=== PATIENT | male | born 1975 | race Caucasian/White ===

== ENCOUNTER 2016-12-15 00:59 | Emergency (ER) | payer OTHER ==
[2016-12-15] MEDS ORDERED: IPRATROPIUM-ALBUTEROL 3 ML NEB INHALATION STA (01:38)
[2016-12-15] MEDS ORDERED: ACETAMINOPHEN TAB 500 MG TAB PO STA (01:39)
--- NOTE | 2016-12-15 01:42 | ED ---
General Adult HPI - General Chief complaint: Psychiatric Symptoms Stated complaint: Petition-Homicidal Time Seen by Provider: 12/15/16 01:05 Source: patient, RN notes reviewed Mode of arrival: ambulatory Limitations: no limitations - History of Present Illness Initial comments: This is a 40-year-old male who presents to the emergency department the past history of schizophrenia which the patient states he doesn't believe he has per patient states she is on Seroquel and Zoloft but he only takes them occasionally. Patient also admits to having one beer this evening and states he is a smoker. Patient states he was kicked of his apartment yesterday so they called the police to let them know that he did not want to be messed with and that if anybody masses with and he'll take care of. Patient states when he said he would kill them he did not mean that literally he meant that he would take him to Court soothe him and the authorities would take care of it. Patient also stated that he couldn't see inside pupils might understand what they're doing. Patient also states he thinks people are putting stuff in his apartment that make him. We have year so that he will eventually leave the apartment he states this is occurred multiple times per patient also states that people are stealing all of his stuff. Patient just wanted to let the police noted that that has not continued. - Related Data Home Medications Medication Instructions Recorded Confirmed ARIPiprazole IM [Abilify Maintena] 400 mg IM QMONTH 10/07/16 12/15/16 Previous Rx's Medication Instructions Recorded ARIPiprazole [Abilify] 20 mg PO DAILY 28 Days 10/07/16 Levothyroxine Sodium [Synthroid] 50 mcg PO DAILY 30 Days 10/07/16 Nicotine 21Mg/24Hr Patch [Habitrol] 1 patch TRANSDERM DAILY 28 Days 10/07/16 QUEtiapine [SEROquel] 400 mg PO HS 28 Days 10/07/16 Sertraline [Zoloft] 100 mg PO BID 28 Days 10/07/16 Trihexyphenidyl [Artane] 5 mg PO BID 56 Days 10/07/16 Allergies Allergy/AdvReac Type Severity Reaction Status Date / Time No Known Allergies Allergy Verified 09/26/16 17:52 Review of Systems ROS Statement: Those systems with pertinent positive or pertinent negative responses have been documented in the HPI. ROS Other: All systems not noted in ROS Statement are negative. Past Medical History Past Medical History: Osteoarthritis (OA) Additional Past Medical History / Comment(s): chronic back pain, migraine, chronic insomnia History of Any Multi-Drug Resistant Organisms: None Reported Past Surgical History: Hernia Repair Additional Past Anesthesia/Blood Transfusion Reaction / Comment(s): Pt. did not provide info. Past Psychological History: Bipolar, Depression, Schizophrenia Smoking Status: Current every day smoker Past Alcohol Use History: Rare Additional Past Alcohol Use History / Comment(s): patient states he is smoking 1 pack of cigarettes per day. He drinks alcohol occasionally. He also states he smokes marijuana and eats brownies. He denies any prescription drug users other street drug use. He is single. Past Drug Use History: Marijuana Additional Drug Use History / Comment(s): "no I don't, my friends do". Pt claims he has been in in-pt tx "I think last year" in [place] - Past Family History Father Additional Family Medical History / Comment(s): patient's father in his late 70s from cancer. Patient does not know specifics. Mother Additional Family Medical History / Comment(s): Mother in her 70s. Brother(s) Additional Family Medical History / Comment(s): Patient has 3 brothers and 5 sisters with strong family history of depression. Daughter(s) Additional Family Medical History / Comment(s): Patient has a 7-year-old and 5- year-old children; one boy and one girl. General Exam - General Exam Comments Initial Comments: GENERAL: Patient is well-developed and well-nourished. Patient is nontoxic and well- hydrated and is in no acute distress. ENT: Neck is soft and supple. No significant lymphadenopathy is noted. Oropharynx is clear. Moist mucous membranes. Neck has full range of motion without eliciting any pain. EYES: The sclera were anicteric and conjunctiva were pink and moist. Extraocular movements were intact and pupils were equal round and reactive to light. Eyelids were unremarkable. PULMONARY: Patient's expiratory wheezing in bilateral bases CARDIOVASCULAR: There is a regular rate and rhythm without any murmurs gallops or rubs. ABDOMEN: Soft and nontender with normal bowel sounds. No palpable organomegaly was noted. There is no palpable pulsatile mass. SKIN: Skin is clear with no lesions or rashes and otherwise unremarkable. NEUROLOGIC: Patient is alert and oriented x3. Cranial nerves II through XII are grossly intact. Motor and sensory are also intact. Normal speech, volume and content. Symmetrical smile. MUSCULOSKELETAL: Normal extremities with adequate strength and full range of motion. No lower extremity swelling or edema. No calf tenderness. LYMPHATICS: No significant lymphadenopathy is noted PSYCHIATRIC: Patient seems very agitated and paranoid. Limitations: no limitations Course Vital Signs 12/15/16 12/15/16 12/15/16 01:05 02:11 02:17 Temperature 100.2 F H Pulse Rate 106 H 104 H 105 H Respiratory 18 Rate Blood Pressure 141/71 O2 Sat by Pulse 100 Oximetry 12/15/16 12/15/16 07:54 08:45 Temperature 97.8 F 97.9 F Pulse Rate 91 54 L Respiratory 16 18 Rate Blood Pressure 154/93 155/67 O2 Sat by Pulse 99 97 Oximetry Medical Decision Making - Lab Data Lab Results 12/15/16 Range/Units 03:01 Urine Opiates Screen Not Detected (NotDetected) Ur Oxycodone Screen Not Detected (NotDetected) Urine Methadone Screen Not Detected (NotDetected) Ur Propoxyphene Screen Not Detected (NotDetected) Ur Barbiturates Screen Not Detected (NotDetected) U Tricyclic Antidepress Detected H (NotDetected) Ur Phencyclidine Scrn Not Detected (NotDetected) Ur Amphetamines Screen Not Detected (NotDetected) U Methamphetamines Scrn Not Detected (NotDetected) U Benzodiazepines Scrn Not Detected (NotDetected) Urine Cocaine Screen Not Detected (NotDetected) U Marijuana (THC) Screen Detected H (NotDetected) Disposition Clinical Impression: Acute exacerbation of chronic schizophrenia Disposition: ADMITTED IP TO THIS HOSP Referrals: None,Stated [Primary Care Provider] - 1-2 days Time of Disposition: 06:15
--- NOTE | 2016-12-15 02:06 | XR ---
EXAM: XR Chest, 2 Views. CLINICAL HISTORY: Reason: Difficulty breathing TECHNIQUE: Frontal and lateral views of the chest. COMPARISON: No relevant prior studies available. FINDINGS: Lungs: Unremarkable. No consolidation. Pleural spaces: Note, the posterior costophrenic sulci are partially excluded from the [id number] on the lateral view. Allowing for this, no pleural effusion present. No pneumothorax. Heart: Unremarkable. No cardiomegaly. Mediastinum: Unremarkable. Bones: Unremarkable. No acute fracture. IMPRESSION: No acute findings.
[2016-12-15 08:46] VITALS: BP 155/67; PULSE 54; RESP 18; TEMP 97.9
== END 2016-12-15 09:05 | disposition short-term general hospital (02) ==
LOC: EC 00:59
DX: F23 Brief psychotic disorder (principal); F31.9 Bipolar disorder, unspecified; F17.200 Nicotine dependence, unspecified, uncomplicated
CPT/HCPCS: 71020; 80306; 82075; 94640; 99285

== ENCOUNTER 2017-04-08 04:15 | Emergency (ER) | payer OTHER ==
[2017-04-08 04:22] VITALS: TEMP 98.4
--- NOTE | 2017-04-08 07:31 | ED ---
General Adult HPI - General Chief complaint: Overdose Stated complaint: drug abuse Time Seen by Provider: 04/08/17 04:31 Source: EMS Mode of arrival: EMS Limitations: no limitations - History of Present Illness Initial comments: This patient is a 41-year-old man brought in to be evaluated for altered mental status. The patient had reportedly phoned 911 after feeling that he was too intoxicated. He had been smoking marijuana and felt that it may been laced with something. The patient is denying any pain or dyspnea. He is not having vomiting. He is concerned that his dealer may have sold them something else than marijuana. -: hour(s) Improves with: none Worsens with: none - Related Data Home Medications Medication Instructions Recorded Confirmed ARIPiprazole IM [Abilify Maintena] 400 mg IM Q28D 10/07/16 04/08/17 Ergocalciferol [Vitamin D2] 50,000 unit PO Q7D 04/08/17 04/08/17 QUEtiapine [SEROquel] 200 mg PO HS 04/08/17 04/08/17 Sertraline [Zoloft] 200 mg PO HS 04/08/17 04/08/17 Trihexyphenidyl HCl 5 mg PO BID 04/08/17 04/08/17 Previous Rx's Medication Instructions Recorded ARIPiprazole [Abilify] 20 mg PO DAILY 28 Days 10/07/16 Allergies Allergy/AdvReac Type Severity Reaction Status Date / Time No Known Allergies Allergy Verified 04/08/17 07:38 Review of Systems ROS Statement: Those systems with pertinent positive or pertinent negative responses have been documented in the HPI. ROS Other: All systems not noted in ROS Statement are negative. Constitutional: Denies: fever Respiratory: Denies: cough, dyspnea Cardiovascular: Denies: chest pain, palpitations, syncope Gastrointestinal: Denies: abdominal pain, vomiting, diarrhea Skin: Denies: rash Neurological: Denies: headache Psychiatric: Denies: homicidal thoughts, suicidal thoughts Past Medical History Past Medical History: Osteoarthritis (OA) Additional Past Medical History / Comment(s): chronic back pain, migraine, chronic insomnia History of Any Multi-Drug Resistant Organisms: None Reported Past Surgical History: Hernia Repair Additional Past Anesthesia/Blood Transfusion Reaction / Comment(s): Pt. did not provide info. Past Psychological History: Bipolar, Depression, Schizophrenia Smoking Status: Current every day smoker Past Alcohol Use History: Rare Past Drug Use History: Marijuana - Past Family History Father Additional Family Medical History / Comment(s): patient's father in his late 70s from cancer. Patient does not know specifics. Mother Additional Family Medical History / Comment(s): Mother in her 70s. Brother(s) Additional Family Medical History / Comment(s): Patient has 3 brothers and 5 sisters with strong family history of depression. Daughter(s) Additional Family Medical History / Comment(s): Patient has a 7-year-old and 5- year-old children; one boy and one girl. General Exam Limitations: no limitations General appearance: alert, in no apparent distress, appears intoxicated Head exam: Present: atraumatic, normocephalic Eye exam: Present: normal appearance. Absent: scleral icterus, conjunctival injection Neck exam: Present: normal inspection, full ROM Respiratory exam: Present: normal lung sounds bilaterally. Absent: respiratory distress, wheezes, rales, rhonchi, stridor Cardiovascular Exam: Present: regular rate, normal rhythm, normal heart sounds. Absent: systolic murmur, diastolic murmur, rubs, gallop GI/Abdominal exam: Present: soft. Absent: distended, tenderness, guarding, rebound Extremities exam: Present: normal inspection, normal capillary refill. Absent: pedal edema, calf tenderness Neurological exam: Present: alert Psychiatric exam: Present: normal mood Skin exam: Present: warm, dry, intact, normal color. Absent: rash, cyanosis, diaphoretic, erythema, petechiae, pallor, mottled Course Vital Signs 04/08/17 04/08/17 04/08/17 04:16 05:30 06:24 Temperature 98.4 F Pulse Rate 106 H 100 74 Respiratory 18 18 18 Rate Blood Pressure 134/80 118/69 101/69 O2 Sat by Pulse 96 95 96 Oximetry 04/08/17 07:16 Temperature Pulse Rate 66 Respiratory 16 Rate Blood Pressure 111/72 O2 Sat by Pulse 94 L Oximetry Disposition Clinical Impression: Marijuana intoxication Disposition: HOME SELF-CARE Condition: Fair Instructions: Cannabis Abuse (ED) Referrals: None,Stated [Primary Care Provider] - 1-2 days
[2017-04-08 08:40] VITALS: BP 110/79; PULSE 77; RESP 18
== END 2017-04-08 08:43 | disposition home or self-care (01) ==
LOC: EC 04:15
DX: F12.920 Cannabis use, unspecified with intoxication, uncomplicated (principal); F31.9 Bipolar disorder, unspecified; F20.9 Schizophrenia, unspecified; F17.200 Nicotine dependence, unspecified, uncomplicated; Z79.899 Other long term (current) drug therapy
CPT/HCPCS: 80306; 99284

== ENCOUNTER 2017-04-23 14:17 | Inpatient (IN) | payer MEDICAID, OTHER ==
--- NOTE | 2017-04-23 14:48 | ED ---
Psych HPI - General Chief Complaint: Psychiatric Symptoms Stated Complaint: mental health Time Seen by Provider: 04/23/17 14:39 Source: patient, RN notes reviewed Mode of arrival: ambulatory - History of Present Illness Initial Comments: 41-year-old male presents to the emergency department with a chief complaint of suicidal and homicidal thoughts. Patient is currently in senior living he's been having paranoid thoughts that he is being smoked out and gas in his cell. Patient states he believes that people are gasing him. Patient states she's been off his medications for about one month. Patient states he has been diagnosed with all psychiatric disorders pretty much. Patient states that she has been doing actually does not even know why the chest. Patient states she is suicidal Patient states that he does have a plan to attack a guard so that he will be killed. He also would like to kill all of the [place] police. Patient denies any recent fever, chills, shortness of breath, chest pain, back pain, abdominal pain, nausea vomiting, numbness or tingling, dysuria or hematuria, constipation or diarrhea, headaches or visual changes, or any other current symptoms. - Related Data Home Medications Medication Instructions Recorded Confirmed ARIPiprazole IM [Abilify Maintena] 400 mg IM Q28D 10/07/16 04/23/17 Ergocalciferol [Vitamin D2] 50,000 unit PO Q7D 04/08/17 04/23/17 QUEtiapine [SEROquel] 200 mg PO HS 04/08/17 04/23/17 Sertraline [Zoloft] 200 mg PO HS 04/08/17 04/23/17 Trihexyphenidyl HCl 5 mg PO BID 04/08/17 04/23/17 ARIPiprazole [Abilify] 15 mg PO DAILY 04/23/17 04/23/17 Allergies Allergy/AdvReac Type Severity Reaction Status Date / Time No Known Allergies Allergy Verified 04/23/17 14:38 Review of Systems ROS Statement: Those systems with pertinent positive or pertinent negative responses have been documented in the HPI. ROS Other: All systems not noted in ROS Statement are negative. Past Medical History Past Medical History: Osteoarthritis (OA) Additional Past Medical History / Comment(s): chronic back pain, migraine, chronic insomnia History of Any Multi-Drug Resistant Organisms: None Reported Past Surgical History: Hernia Repair Additional Past Anesthesia/Blood Transfusion Reaction / Comment(s): Pt. did not provide info. Past Psychological History: Bipolar, Depression, Schizophrenia Smoking Status: Current every day smoker Past Alcohol Use History: Rare Past Drug Use History: Marijuana - Past Family History Father Additional Family Medical History / Comment(s): patient's father in his late 70s from cancer. Patient does not know specifics. Mother Additional Family Medical History / Comment(s): Mother in her 70s. Brother(s) Additional Family Medical History / Comment(s): Patient has 3 brothers and 5 sisters with strong family history of depression. Daughter(s) Additional Family Medical History / Comment(s): Patient has a 7-year-old and 5- year-old children; one boy and one girl. General Exam Limitations: no limitations General appearance: alert, in no apparent distress ENT exam: Present: normal exam, mucous membranes moist Neck exam: Present: normal inspection. Absent: tenderness, meningismus, lymphadenopathy Respiratory exam: Present: normal lung sounds bilaterally. Absent: respiratory distress, wheezes, rales, rhonchi, stridor Cardiovascular Exam: Present: regular rate, normal rhythm, normal heart sounds. Absent: systolic murmur, diastolic murmur, rubs, gallop, clicks Neurological exam: Present: alert, oriented X3 Psychiatric exam: Present: homicidal ideation, suicidal ideation Skin exam: Present: warm, dry, intact, normal color. Absent: rash Course Vital Signs 04/23/17 14:34 Temperature 98.4 F Pulse Rate 78 Respiratory 20 Rate Blood Pressure 140/67 O2 Sat by Pulse 99 Oximetry Medical Decision Making - Medical Decision Making 41-year-old male presents for suicidal and homicidal thoughts. This time the patient does not appear to be suffering from acute medical emergencies. This time patient is cleared to be evaluated by psychiatry. At this time patient was evaluated and they are going to admit to the psychiatric unit. Disposition Clinical Impression: Paranoid schizophrenia Disposition: TRANSFER TO PSYCH HOSP/UNIT Referrals: None,Stated [Primary Care Provider] - 1-2 days
[2017-04-23] MEDS ORDERED: MAGNESIUM HYDROXIDE 2,400 MG/10 ML CUP PO PRN (16:37)
[2017-04-23] MEDS ORDERED: MAG HYDROX/AL HYDROX/SIMETH 30 ML CUP PO PRN (16:37)
[2017-04-23] MEDS ORDERED: ZIPRASIDONE 20 MG VIAL IM PRN (16:37)
[2017-04-23] MEDS ORDERED: LORazepam 1 MG TAB PO PRN (16:37)
[2017-04-23] MEDS ORDERED: LORazepam 2 MG/ML SYRINGE IM PRN (16:45)
[2017-04-23] MEDS: NICOTINE 14MG/24HR PATCH TRANSDERM SCH (17:20)
[2017-04-23] MEDS: ACETAMINOPHEN TAB 325 MG TAB PO PRN (18:38)
[2017-04-23] MEDS: TRIHEXYPHENIDYL 2 MG TAB PO SCH (20:02)
[2017-04-23] MEDS: SERTRALINE 100 MG TAB PO SCH (20:02)
[2017-04-24] MEDS: ACETAMINOPHEN TAB 325 MG TAB PO PRN (01:42)
[2017-04-24 07:43] LABS: Basophils # (A) 0.1 k/uL (0-0.2); Basophils % (A) 1 %; CH 30.6; CHCM 35.1; Eosinophils # (A) 0.4 k/uL (0-0.7); Eosinophils % (A) 4 %; HCT 41.9 % (39.0-53.0); HDW 2.62; HGB 14.3 gm/dL (13.0-17.5); Luc # (Auto) 0.16; Luc % (Auto) 2; Lymphocytes # (A) 2.7 k/uL (1.0-4.8); Lymphocytes % (A) 28 %; MCH 29.9 pg (25.0-35.0); MCHC 34.2 g/dL (31.0-37.0); MCV 87.3 fL (80.0-100.0); Mean Platelet Volume 7.6; Monocytes # (A) 0.5 k/uL (0-1.0); Monocytes % (A) 5 %; Neutrophils # (A) 5.7 k/uL (1.3-7.7); Neutrophils % (A) 60 %; RBC 4.79 m/uL (4.30-5.90); RDW 12.9 % (11.5-15.5); WBC 9.6 k/uL (3.8-10.6); WBC (Perox) 9.27
[2017-04-24 08:04] LABS: ALT 41 U/L (21-72); AST 33 U/L (17-59); Alkaline Phosphatase 79 U/L (38-126); Anion Gap 14 mmol/L; Blood Urea Nitrogen 13 mg/dL (9-20); Calcium 9.8 mg/dL (8.4-10.2); Carbon Dioxide 26 mmol/L (22-30); Chloride 102 mmol/L (98-107); Glucose 90 mg/dL (74-99); Non-African American GFR(MDRD) >60 (>60 ml/min/1.73 sqM); Potassium 3.8 mmol/L (3.5-5.1); Sodium 142 mmol/L (137-145); Total Bilirubin 0.7 mg/dL (0.2-1.3); Total Protein 8.5 g/dL (6.3-8.2)
[2017-04-24] MEDS: TRIHEXYPHENIDYL 2 MG TAB PO SCH ×2 (08:35→20:28)
[2017-04-24] MEDS: ARIPiprazole 15 MG TAB PO SCH (08:37)
[2017-04-24] MEDS: NICOTINE 14MG/24HR PATCH TRANSDERM SCH (08:38)
[2017-04-24] MEDS ORDERED: ERGOCALCIFEROL 50,000 UNIT CAP PO SCH (09:00)
--- NOTE | 2017-04-24 11:20 | HP ---
DATE OF SERVICE: 04/24/2017 IDENTIFYING DATA: This patient is a 41-year-old male who was admitted to the mental health unit from the [facility] for symptoms of acute psychosis. HISTORY OF PRESENT ILLNESS: The patient has a known history of schizophrenia. He has been on this mental health unit several time in the recent past. He reports that there was at least a month where he was off of his psychotropic medication. He had been receiving the Ability Maintenna injection and he reports taking Seroquel at bedtime. He report that he has been incarcerated at the [facility] for home invasion. He was brought to the mental health unit due to his symptoms of psychosis. He states that he has a hatred for the Police Department and he was having thoughts of killing officers as he felt they were gassing him and exposing him to chemicals in the [facility]. He states his cell was like an oven and he had to wrap his face in a towel just to survive. He had thoughts of attack them and trying to " by copper plater." He states he plans on suing the entire county. The reports that the police officers were intentionally gassing him and exposing him to chemicals because he has exposed other police officers and police departments across the state. He states that there are numerous bad firer portable boiler and they need to be exposed. He now feels they are retaliating against him. He endorses a feeling of being unsafe where ever he is including on the mental health unit but he states he does not ever demonstrate any violence on this unit. He endorses auditory and visual hallucinations but refuses to describe them other than saying "they are spiritual." He states this is his private information. He has signed in voluntarily. He is willing to use medication. He is endorsing no tearfulness or crying spells. He initially reported his sleep was poor and then he states he has been excessively sleeping. Appetite stable. It is unclear if he has had a history of hypomanic or manic episodes. He is endorsing no current suicidal thoughts but had them when he was in [facility]. In general, he goes on to describe a variety a paranoid persecutory thoughts. PAST PSYCHIATRIC HISTORY: He has had numerous inpatient psychiatric admissions , his last on this unit was in September 2016, proceeding by April of 2016, proceeded by February of 2014. It is unclear if he has had any suicide attempts. It appears that he is prescribed Ability Maintenna 400 mg monthly, Seroquel 200 mg at bedtime, Artane 5 mg twice daily, Zoloft 200 mg daily. He has been on Risperdal in the past. He struggles with identifying other psychotropics he has trialed previously. PAST MEDICAL HISTORY: Hypothyroidism. He is prescribed Synthroid. ALLERGIES: No known drug allergies, chemical dependence history. He does have a history of overusing alcohol and marijuana. He states that his charge of home invasion is due to using "bad marijuana." He states he was disoriented and thought the home was the residence of friends. He has been placed in residential treatment in the past for chemical dependency reasons but he has difficulty describing the circumstances and how many times. FAMILY PSYCHIATRIC HISTORY: Unknown. FAMILY CHEMICAL DEPENDENCY HISTORY: Unknown. SOCIAL HISTORY: The patient is 41 years old. He came to us from the [facility]. He is . He has 2 children. He has no contact with them as they reside with their mother. He is unemployed but received his Social Security Disability income. No history of service. He has an eleventh grade education. He states he is originally from [place]. He was raised by both parents. He has 2 brothers and 5 sisters. MENTAL STATUS EXAM: The patient is a stocky male appearing his stated age. He has adequate hygiene and grooming. He is dressed in hospital gowns. Eye contact is appropriate. Speech if fluent, spontaneous, non- pressured. He reports his mood is angry, frustrated and he feels unsafe. He maintains a blunted affect throughout the conversation. He endorses auditory and visual hallucinations that are "spiritual" but provides no further detail. He endorses paranoid and pursecutory delusions that are mainly focused around law enforcement and the county in general. He demonstrate no verbal or physical aggressiveness, although he is verbose and mildly pressured at times, he was directible. Insight and judgement are impaired. He is oriented to person, place, month and year. He is able to name the days of the week backwards. There are no observed abnormal involuntary movements. STRENGTHS: Income, willingness to receive treatment voluntarily. WEAKNESSES: Current psychosis, pending legal charges, likely limited support. INTELLECT: Average. IMPRESSION: 1. Schizophrenia, rule out schizoaffective disorder. 2. Hypothyroidism. 3. Legal charges. PLAN: The patient has been admitted to the mental health unit. He is here voluntarily. We have placed him on Abilify 15 mg daily, Artane 5 mg twice daily , Zoloft 100 mg daily. We will confirm his medications once [facility] records are reviewed. We will consider restarting the Seroquel and Synthroid. We will have to verify his last Abilify Maintenna injection. We will monitor him for safety, encourage his participate in the milieu. He will be seen by the dental claims processor for a routine history and physical exam. We will provide reality orientation when possible. NELLIE
--- NOTE | 2017-04-24 13:10 | P.MDCNMH ---
History of Present Illness H&P Date: 04/24/17 Chief Complaint: Medical management This is a 41-year-old gentleman with no current PCP. He has underlying history of schizophrenia, tobacco dependency, chronic back pain, edema, migraines and insomnia who was admitted to the mental health unit secondary to increasing paranoia. He shouldn't states that he was in half-way and felt like he was in a have a hemorrhage of blood in his head. He thinks that the half-way employees put chemicals in his half-way cell and that it was going to make his head blow up. Patient was brought into [facility] emergency center for evaluation and subsequently admitted to the mental health unit. Patient is complaining of headache on and off but no visual changes. He states he drinks a half a pot of coffee plus Pepsi and Mountain Dew during the day. He is complaining of neck pain as well. He is also concerned that he got some bad marijuana. He denies any other street drug use. He has ongoing problems with insomnia. . Review of Systems All systems: negative Constitutional: Denies chills, Denies fever Eyes: denies blurred vision, denies pain Ears, nose, mouth and throat: Reports headache, Denies sore throat Cardiovascular: Denies chest pain, Denies shortness of breath Respiratory: Denies cough Gastrointestinal: Denies abdominal pain, Denies diarrhea, Denies nausea, Denies vomiting Musculoskeletal: Denies myalgias Integumentary: Denies pruritus, Denies rash Neurological: Denies numbness, Denies weakness Psychiatric: Reports confusion, Reports paranoia, Denies anxiety, Denies depression Endocrine: Denies fatigue, Denies weight change Past Medical History Past Medical History: Osteoarthritis (OA) Additional Past Medical History / Comment(s): chronic back pain, migraine, chronic insomnia History of Any Multi-Drug Resistant Organisms: None Reported Past Surgical History: Hernia Repair Additional Past Anesthesia/Blood Transfusion Reaction / Comment(s): Pt. did not provide info. Past Psychological History: Bipolar, Depression, Schizophrenia Smoking Status: Current every day smoker Past Alcohol Use History: Rare Additional Past Alcohol Use History / Comment(s): Patient is a smoker one pack per day. He drinks alcohol occasionally. He smokes marijuana and eats brownies. He denies any prescription drug abuse or street drug use. He is single. Past Drug Use History: Marijuana - Past Family History Father Additional Family Medical History / Comment(s): patient's father in his late 70s from cancer. Patient does not know specifics. Mother Additional Family Medical History / Comment(s): Mother in her 70s. Brother(s) Additional Family Medical History / Comment(s): Patient has 3 brothers and 5 sisters with strong family history of depression. Daughter(s) Additional Family Medical History / Comment(s): Patient has a 7-year-old and 5- year-old children; one boy and one girl. Medications and Allergies Home Medications Medication Instructions Recorded Confirmed Type ARIPiprazole IM [Abilify Maintena] 400 mg IM Q28D 10/07/16 04/23/17 History Ergocalciferol [Vitamin D2] 50,000 unit PO Q7D 04/08/17 04/23/17 History QUEtiapine [SEROquel] 200 mg PO HS 04/08/17 04/23/17 History Sertraline [Zoloft] 200 mg PO HS 04/08/17 04/23/17 History Trihexyphenidyl HCl 5 mg PO BID 04/08/17 04/23/17 History ARIPiprazole [Abilify] 15 mg PO DAILY 04/23/17 04/23/17 History Allergies Allergy/AdvReac Type Severity Reaction Status Date / Time No Known Allergies Allergy Verified 04/23/17 14:38 Physical Exam Vitals: Vital Signs Temp Pulse Pulse Resp BP BP Pulse Ox 04/24/17 00:21 97.8 F 75 18 126/64 04/23/17 16:58 71 15 109/64 98 04/23/17 16:35 98.3 F 67 18 120/64 97 04/23/17 14:34 98.4 F 78 20 140/67 99 Gen: This is a 41-year-old male. He is cooperative but becomes very animated at times. HEENT: Head is atraumatic, normocephalic. Pupils equal, round. Sclerae is anicteric. NECK: Supple. No JVD. No lymphadenopathy. No thyromegaly. LUNGS: Clear to auscultation. No wheezes or rhonchi. No intercostal retractions. HEART: Regular rate and rhythm. No murmur. ABDOMEN: Soft. Bowel sounds are present. No masses. No tenderness. EXTREMITIES: No pedal edema. No calf tenderness. NEUROLOGICAL: Patient is awake, alert and oriented x3. Cranial nerves 2 through 12 are grossly intact. Cranial Nerve Examination - Cranial Nerves Cranial Nerve II- Optic: Intact Cranial Nerve III- Oculomotor: Intact Cranial Nerve IV- Trochlear: Intact Cranial Nerve V- Trigeminal: Intact Cranial Nerve - Abducens: Intact Cranial Nerve VII- Facial: Intact Cranial Nerve VIII- Auditory: Intact Cranial Nerve IX- Glossopharyngeal: Intact Cranial Nerve X- Vagus: Intact Cranial Nerve XI- Accessory: Intact Cranial Nerve XII- Hypoglossal: Intact Results CBC & Chem 7: 04/24/17 07:22 04/24/17 07:22 Labs: Abnormal Lab Results - Last 24 Hours (Table) 04/24/17 Range/Units 07:22 Total Protein 8.5 H (6.3-8.2) g/dL Albumin 5.2 H (3.5-5.0) g/dL Assessment and Plan Plan: 1. Paranoia with history of schizophrenia. Patient admitted to the mental health unit. Continue current plan of care. 2. Chronic neck pain. Flexeril started at bedtime . 3. History of chronic back pain, stable. 4. History of migraine headaches, stable. 5. Tobacco use and dependence. Continue nicotine patch. Impression and plan of care have been directed as dictated by the signing physician. Teresa Zuñiga nurse practitioner acting as scribe for signing physician.
[2017-04-24] MEDS: SERTRALINE 100 MG TAB PO SCH (20:27)
[2017-04-24] MEDS: CYCLOBENZAPRINE 10 MG TAB PO SCH (22:57)
[2017-04-24] MEDS: QUEtiapine 200 MG TAB PO SCH (22:57)
[2017-04-25 00:37] VITALS: BMI 31.2
[2017-04-25] MEDS: NICOTINE 14MG/24HR PATCH TRANSDERM SCH (09:01)
[2017-04-25] MEDS: ARIPiprazole 15 MG TAB PO SCH (09:01)
[2017-04-25] MEDS: TRIHEXYPHENIDYL 2 MG TAB PO SCH ×2 (09:01→20:55)
--- NOTE | 2017-04-25 11:42 | P.PN ---
Progress Note - Text Interval history: The patient is found in the activity room participating in group. He follows me to an interview room. He spontaneously states that he slept well last night he has been compliant with medications we discussed each of his medications in detail. He discusses concerns regarding to his incarceration. He is requesting to go back to general population and he was informed this is not something in my control. Staff report that the patient has been appropriate on the unit he has been directable. The patient reports that his mood is improved today he feels safe. Mental status exam: The patient is alert he is dressed in his own clothing hygiene grooming adequate. Speech is fluent. He reports mood is improved affect is constricted. He reports no current suicidal or homicidal ideation intent or plan. He expresses his dislike in general for law enforcement officers. Insight and judgment limited. It appears that his paranoid and persecutory thoughts are reduced here on the mental health unit. He is endorsing no auditory or visual hallucinations. He demonstrates no verbal or physical aggressiveness with me and is easily directed in session. He demonstrates no tangential thinking loose associations or flight of ideas. Plan: We will continue the patient's medications as written. We will continue to assess him for safety. He is encouraged to continue participating in the milieu. I'm anticipating discharging him back to skilled nursing on Friday if he remains clinically stable.
[2017-04-25] MEDS: QUEtiapine 200 MG TAB PO SCH (20:08)
[2017-04-25] MEDS: CYCLOBENZAPRINE 10 MG TAB PO SCH (20:08)
[2017-04-25] MEDS: SERTRALINE 100 MG TAB PO SCH (20:08)
[2017-04-26] MEDS: NICOTINE 14MG/24HR PATCH TRANSDERM SCH (08:24)
[2017-04-26] MEDS: TRIHEXYPHENIDYL 2 MG TAB PO SCH ×2 (08:24→20:12)
[2017-04-26] MEDS: ARIPiprazole 15 MG TAB PO SCH (08:24)
--- NOTE | 2017-04-26 13:06 | P.PN ---
Progress Note - Text INTERVERAL HISTORY: Weekend coverage for Dr. Martin Review of record, discussed with nursing staff, met with patient. Patient came to office, had found him sleeping on the couch in the hallway. Reports that he was in intermediate and that the cell sabotaged, and that his mind was burning. States that they would not change him from that cell to another one, nor would they allow him to be in the general population. States that he plans on suing them for this reason, and for not giving him an aspirin. He knows that he'll be going back to intermediate on Friday. States that he plans on following whatever [facility] tells him he must do , most importantly he says he will keep his appointment with his psychiatrist. States that he is feeling better here even though he has a phobia of his room he cuts it reminds him of his cell. MENTAL STATUS EXAM: Patient is alert and oriented 3, cooperative, good eye contact, well groomed in street clothing. Speaks primarily about his incarceration, and the injury that he has received from the legal system. No auditory or visual hallucinations. However he has a strong sense of being persecuted particularly by the legal system. No suicidal or homicidal ideation. Staff reports there is been no inappropriate behavior. PLAN: Will continue the inpatient hospitalization, for safety purposes. Will continue the medications as they are prescribed. Encourage groups as much as he can possibly tolerate.
[2017-04-26] MEDS: QUEtiapine 200 MG TAB PO SCH (20:12)
[2017-04-26] MEDS: CYCLOBENZAPRINE 10 MG TAB PO SCH (20:12)
[2017-04-26] MEDS: SERTRALINE 100 MG TAB PO SCH (20:12)
[2017-04-27] MEDS: ARIPiprazole 15 MG TAB PO SCH (08:22)
[2017-04-27] MEDS: NICOTINE 14MG/24HR PATCH TRANSDERM SCH (08:22)
[2017-04-27] MEDS: TRIHEXYPHENIDYL 2 MG TAB PO SCH ×2 (08:22→20:50)
--- NOTE | 2017-04-27 14:18 | P.PN ---
Progress Note - Text INTERVERAL HISTORY: Weekend coverage for Dr. Martin Review of record, discussed with nursing staff, met with patient. Patient came to office, he was in [place] speaking another patient. Today stated he could not speak to me about the issue of cell being sabotaged, will speak to a media center director school but does not want to jeopardize his case . Continues to speak about his legal plans towards the [facility]. He knows that he'll be going back to [facility] on Friday. States that he plans on following whatever [employer] [facility] tells him he must do , most importantly he says he will keep his appointment with his psychiatrist. States that he is feeling better here even though he has a phobia of his room, it reminds him of his cell. MENTAL STATUS EXAM: Patient is alert and oriented 3, cooperative, good eye contact, well groomed in street clothing. Speaks primarily about his incarceration, and the injury that he has received from the legal system. No auditory or visual hallucinations. However he has a strong sense of being persecuted particularly by the legal system. No suicidal or homicidal ideation. Staff reports there is been no inappropriate behavior. PLAN: Will continue the inpatient hospitalization, for safety purposes. Will continue the medications as they are prescribed. Patient requested to have Cogentin 3 times a day, he is taking Artane twice a day, will defer to Dr. Martin Encourage groups as much as he can possibly tolerate.
[2017-04-27] MEDS: CYCLOBENZAPRINE 10 MG TAB PO SCH (20:50)
[2017-04-27] MEDS: SERTRALINE 100 MG TAB PO SCH (20:50)
[2017-04-27] MEDS: QUEtiapine 200 MG TAB PO SCH (22:41)
[2017-04-28 04:41] VITALS: BP 141/84; PULSE 99; RESP 16; TEMP 98.5
[2017-04-28] MEDS: NICOTINE 14MG/24HR PATCH TRANSDERM SCH (07:25)
[2017-04-28] MEDS: ARIPiprazole 15 MG TAB PO SCH (08:18)
[2017-04-28] MEDS: TRIHEXYPHENIDYL 2 MG TAB PO SCH (08:18)
--- NOTE | 2017-04-28 08:43 | P.DS ---
Providers Date of admission: 04/23/17 16:31 Expected date of discharge: 04/28/17 Attending physician: Mathew Martin Consults: 04/23/17 16:37 Consult Physician Routine Consulting Provider: Stephanie Schulz Consult Reason/Comments: follow up H & P Do you want consulting provider notified?: Yes Primary care physician: Stated None - Discharge Diagnosis(es) (1) Schizoaffective disorder Current Visit: Yes Status: Acute Priority: High Hospital Course: Brief summary of admission note: This patient is a 41-year-old male who was admitted to the mental health unit for acute symptoms of psychosis from the detention. He has a known history of schizophrenia. He had reported that he was being persecuted in the detention by officers and he felt as though they were gassing him. He demonstrated agitated behavior due to this reported psychosis and was transferred to the mental health unit for evaluation and treatment. For full details please refer to my psychiatric evaluation dated 04/24/2017. Summary of hospital course: The patient was admitted to the mental health unit he was treated voluntarily. We reviewed his existing psychotropic medications and they were continued as written although I reduced the Zoloft 200 mg daily. The patient was seen by the education specialist for routine history and physical exam. The patient attended groups he demonstrated no agitated behavior he was easily directable. He reported feeling safe on the mental health unit in general. He reported a chronic suspiciousness and dislike of legal authorities but he verbalizes no specific intent or plan of harming any one person. I was able to review records from [facility] regarding visits prior to this hospitalization. The patient was cooperative with medications and reported no side effects. It appears the precipitating factor to this admission is that he is not in the general population in detention and he is hoping he will be able to return to detention in the general population and not on lockdown. Mental status exam: The patient is a stocky male appearing his stated age he is dressed in his own clothing eye contact is appropriate speech is fluent spontaneous nonpressured. He maintains a bland affect with little expression. He reports his mood is "better" he is reporting no acute suicidal or homicidal ideation intent or plan. He specifically denies having any plan of harming any specific person while incarcerated. He is reporting no auditory or visual hallucinations. He continues to describe a general suspiciousness or distrust of law enforcement. He demonstrates no verbal or physical aggressiveness he is easily directed. He is oriented to person place and date. He demonstrates no tangential thinking loose associations or flight of ideas. No abnormal involuntary movements are observed. Impressions 1. Schizoaffective disorder 2. Hypothyroidism 3. Legal charges pending, will return to incarceration Plan: The patient will be discharged from the mental health unit to return to detention. He will continue on his oral dose of Abilify 15 mg daily he is due to have an Abilify maintena on 05/06/2017. He will continue on Artane 5 mg twice daily Zoloft 100 mg daily. It appears these medications provide benefit. The patient is reporting no suicidal or homicidal ideation, he has been participating appropriately in his own activities of daily living such as bathing eating and attending groups. He is not at imminent risk at this time he is appropriate for transition back to detention an outpatient care. Patient Condition at Discharge: Stable Plan - Discharge Summary New Discharge Prescriptions: New Cyclobenzaprine [Flexeril] 10 mg PO HS tab Nicotine 14Mg/24Hr Patch [Habitrol] 1 patch TRANSDERM DAILY #12 patch Sertraline [Zoloft] 100 mg PO HS #30 tab Continue Ergocalciferol [Vitamin D2 (DRISDOL)] 50,000 unit PO Q7D ARIPiprazole [Abilify] 15 mg PO DAILY ARIPiprazole IM [Abilify Maintena] 400 mg IM Q28D #1 QUEtiapine [SEROquel] 200 mg PO HS #30 Trihexyphenidyl HCl 5 mg PO BID #60 Discontinued Sertraline [Zoloft] 200 mg PO HS Discharge Medication List Ergocalciferol [Vitamin D2 (DRISDOL)] 50,000 unit PO Q7D 04/08/17 [History] ARIPiprazole [Abilify] 15 mg PO DAILY 04/23/17 [History] ARIPiprazole IM [Abilify Maintena] 400 mg IM Q28D #1 04/28/17 [Rx] Cyclobenzaprine [Flexeril] 10 mg PO HS tab 04/28/17 [Rx] Nicotine 14Mg/24Hr Patch [Habitrol] 1 patch TRANSDERM DAILY #12 patch 07/10/17 [ Rx] QUEtiapine [SEROquel] 200 mg PO HS #30 04/28/17 [Rx] Sertraline [Zoloft] 100 mg PO HS #30 tab 04/28/17 [Rx] Trihexyphenidyl HCl 5 mg PO BID #60 04/28/17 [Rx] Follow up Appointment(s)/Referral(s): None,Stated [Primary Care Provider] - 1-2 days
== END 2017-04-28 11:10 | disposition home or self-care (01) | DRG 885 ==
LOC: EC 14:17 → 3MHU 16:31
PROVIDERS: ADMIT Psychiatry & Neurology Psychiatry; ATTEND Psychiatry & Neurology Psychiatry
DX: F25.9 Schizoaffective disorder, unspecified (principal); R45.850 Homicidal ideations; R45.851 Suicidal ideations; E03.9 Hypothyroidism, unspecified; F17.200 Nicotine dependence, unspecified, uncomplicated; Z79.899 Other long term (current) drug therapy; Z81.8 Family history of other mental and behavioral disorders
CPT/HCPCS: 80053; 82075; 84443; 85025; 93005; 99285

== ENCOUNTER 2017-04-30 14:34 | Inpatient (IN) | payer MEDICAID, OTHER ==
[2017-04-30] MEDS ORDERED: ACETAMINOPHEN TAB 500 MG TAB PO STA (15:07)
--- NOTE | 2017-04-30 15:17 | ED ---
General Adult HPI - General Chief complaint: Psychiatric Symptoms Stated complaint: Mental Health Time Seen by Provider: 04/30/17 14:55 Source: patient, police, RN notes reviewed, old records reviewed Mode of arrival: ambulatory Limitations: no limitations - History of Present Illness Initial comments: Chief complaint and history of present illness is a 39-year-old male sent emergency room from the skilled nursing. The patient has a history of schizophrenia. He believes that the skilled nursing is forcing poisonous gas into his cell and is feeding him poison food. He is taking his psych medications. He continues to yell and scream all day long. Been sent here for reevaluation and medication reevaluation. Patient does admit that he is suicidal be better off . His plan would be to attack a concrete tile machine operator who has a gun with MB forced to shoot him. - Related Data Home Medications Medication Instructions Recorded Confirmed ARIPiprazole [Abilify] 15 mg PO QAM 04/23/17 04/30/17 Sertraline [Zoloft] 200 mg PO HS 04/30/17 04/30/17 Previous Rx's Medication Instructions Recorded ARIPiprazole IM [Abilify Maintena] 400 mg IM Q28D #1 04/28/17 QUEtiapine [SEROquel] 200 mg PO HS #30 04/28/17 Trihexyphenidyl HCl 5 mg PO BID #60 04/28/17 Allergies Allergy/AdvReac Type Severity Reaction Status Date / Time No Known Allergies Allergy Verified 04/30/17 14:42 Review of Systems ROS Statement: Those systems with pertinent positive or pertinent negative responses have been documented in the HPI. Review of systems no complaint of headache or visual acuity changes she did have a temp of 100. States he is otherwise a productive cough brown phlegm. No urinary tract infection no complaint of sore throat no abdominal pain no skin infections. Patient admits that his head is sick and has a history of bipolar disorder and PTSD. All systems reviewed past medical problems which are going untreated currently hyperlipidemia hypertension osteoarthritis thyroid disorder chronic back pain. He is taking medications for his bipolar and schizophrenia. Patient denies any family history of cancers. His mother has schizophrenia. Patient does smoke and does drink alcohol. No known ALLERGIES. Denies any surgeries other than a left inguinal hernia repair ROS Other: All systems not noted in ROS Statement are negative. Past Medical History Past Medical History: Hyperlipidemia, Hypertension, Osteoarthritis (OA), Thyroid Disorder Additional Past Medical History / Comment(s): chronic back pain, migraine, chronic insomnia History of Any Multi-Drug Resistant Organisms: None Reported Past Surgical History: Hernia Repair Additional Past Anesthesia/Blood Transfusion Reaction / Comment(s): Pt. did not provide info. Past Psychological History: Bipolar, Depression, PTSD, Schizophrenia Smoking Status: Former smoker Past Alcohol Use History: None Reported Past Drug Use History: Marijuana - Past Family History Father Additional Family Medical History / Comment(s): patient's father in his late 70s from cancer. Patient does not know specifics. Mother Additional Family Medical History / Comment(s): Mother in her 70s. Brother(s) Additional Family Medical History / Comment(s): Patient has 3 brothers and 5 sisters with strong family history of depression. Daughter(s) Additional Family Medical History / Comment(s): Patient has a 7-year-old and 5- year-old children; one boy and one girl. General Exam - General Exam Comments Initial Comments: General: The patient is awake and alert, brought emergency room from the skilled nursing because of exacerbation of his mental health issuesschizophrenia. He is currently taking his psych meds but still acting out. Suicidal thoughts or be to attack a concrete tile machine operator with a gun with him being forced to shoot him. Vital signs temp 100 pulse 89 respiratory rate 18 pulse ox 99% room air blood pressure 149/73 Eye: Pupils are equal, round and reactive to light, extra-ocular movements are intact ; there is normal conjunctiva bilaterally. No signs of icterus. Ears, nose, mouth and throat: There are moist mucous membranes and no oral lesions. Neck: The neck is supple, there is no tenderness . Cardiovascular: There is a regular rate and rhythm. No murmur, rub or gallop is appreciated. Respiratory: Lungs are clear to auscultation, respirations are non-labored, breath sounds are equal. No wheezes, stridor, rales, or rhonchi. patient states when he coughs is brown colored material. Chest x-ray pending. Gastrointestinal: No complaint of nausea vomiting or diarrhea. Back: There is no tenderness to palpation in the midline. There is no obvious deformity. No rashes noted. Musculoskeletal: Normal ROM, no tenderness, There is no pedal edema. There is no calf tenderness or swelling. Sensation intact. denying any extremity infections or pain. Neurological: CN II-XII intact, There are no obvious motor or sensory deficits. Coordination appears grossly intact. Speech is normal. Skin: Skin is warm and dry and no rashes or lesions are noted. Psychiatric: Patient is actually cooperative. Does have history of schizophrenia. States that his concerns and paranoia thoughts include being poisoned by a skilled nursing food and gas is being pumped into his cell. Refusing to eat or drink there but he is taking his psych meds. Suicidal plan would be to attack a concrete tile machine operator and being shot by that concrete tile machine operator. Limitations: no limitations Course Vital Signs 04/30/17 04/30/17 14:36 16:58 Temperature 100 F H 99.3 F Pulse Rate 89 91 Respiratory 18 20 Rate Blood Pressure 149/73 131/84 O2 Sat by Pulse 99 96 Oximetry Medical Decision Making - Medical Decision Making Patient's urine triage positive for tricyclic antidepressants and marijuana. Urine is clean no signs of infection. X-ray AP lateral chest. Reviewed by radiologist's his final impression is no acute cardiopulmonary process. As read by Dr. Katerin Caraballo completed a certificate for admission to [facility] for schizophrenia. Patient be admitted. He suggested the patient continue on ibuprofen for fever for viral syndrome. - Lab Data Lab Results 04/30/17 Range/Units 15:45 Urine Color Yellow Urine Appearance Clear (Clear) Urine pH 6.5 (5.0-8.0) Ur Specific Brick 1.019 (1.001-1.035) Urine Protein Trace H (Negative) Urine Glucose (UA) Negative (Negative) Urine Ketones Negative (Negative) Urine Blood Negative (Negative) Urine Nitrite Negative (Negative) Urine Bilirubin Negative (Negative) Urine Urobilinogen <2.0 (<2.0) mg/dL Ur Leukocyte Esterase Small H (Negative) Urine RBC 2 (0-5) /hpf Urine WBC 5 (0-5) /hpf Ur Squamous Epith Cells 1 (0-4) /hpf Urine Mucus Rare H (None) /hpf Urine Opiates Screen Not Detected (NotDetected) Ur Oxycodone Screen Not Detected (NotDetected) Urine Methadone Screen Not Detected (NotDetected) Ur Propoxyphene Screen Not Detected (NotDetected) Ur Barbiturates Screen Not Detected (NotDetected) U Tricyclic Antidepress Detected H (NotDetected) Ur Phencyclidine Scrn Not Detected (NotDetected) Ur Amphetamines Screen Not Detected (NotDetected) U Methamphetamines Scrn Not Detected (NotDetected) U Benzodiazepines Scrn Not Detected (NotDetected) Urine Cocaine Screen Not Detected (NotDetected) U Marijuana (THC) Screen Detected H (NotDetected) Disposition Clinical Impression: Schizophrenia, Viral syndrome Disposition: TRANSFER TO PSYCH HOSP/UNIT Condition: Serious
[2017-04-30 16:11] LABS: Appearance,Urine Clear (Clear); Bilirubin,Urine Negative (Negative); Glucose,Urine (UA) Negative (Negative); Ketones,Urine Negative (Negative); Leukocyte Esterase,Urine Small (Negative); Mucus,Urine Rare /hpf; Nitrite,Urine Negative (Negative); PH, Urine 6.5 (5.0-8.0); Particle Count 1615; Protein,Urine Trace (Negative); RBC,Urine 2 /hpf (0-5); Specific Gravity,Urine 1.019 (1.001-1.035); Squamous Epithelial Cell,Urine 1 /hpf (0-4); UA Billing (MACRO vs. MICRO) MICRO; Urobilinogen,Urine <2.0 mg/dL (<2.0); WBC,Urine 5 /hpf (0-5)
--- NOTE | 2017-04-30 16:56 | XR ---
EXAMINATION TYPE: XR chest 2V DATE OF EXAM: 04/30/2017 COMPARISON: Prior chest x-ray 12/15/2016 HISTORY: Fever and productive cough TECHNIQUE: Frontal and lateral views of the chest are obtained. FINDINGS: There is no focal air space opacity, pleural effusion, or pneumothorax seen. The cardiac silhouette size is within normal limits. There is a mild spinal curvature. The osseous structures ar e intact. IMPRESSION: No acute cardiopulmonary process.
[2017-04-30] MEDS ORDERED: MAGNESIUM HYDROXIDE 2,400 MG/10 ML CUP PO PRN (17:30)
[2017-04-30] MEDS: ACETAMINOPHEN TAB 325 MG TAB PO PRN (19:00)
[2017-04-30] MEDS: NICOTINE 14MG/24HR PATCH TRANSDERM SCH (19:01)
[2017-04-30] MEDS: SERTRALINE 100 MG TAB PO SCH (21:25)
[2017-04-30] MEDS: TRIHEXYPHENIDYL 2 MG TAB PO SCH (22:43)
[2017-05-01] MEDS: QUEtiapine 200 MG TAB PO SCH ×2 (00:26→20:02)
[2017-05-01] MEDS: ACETAMINOPHEN TAB 325 MG TAB PO PRN ×3 (01:35→17:29)
[2017-05-01] MEDS: NICOTINE 14MG/24HR PATCH TRANSDERM SCH (09:16)
[2017-05-01] MEDS: TRIHEXYPHENIDYL 2 MG TAB PO SCH ×3 (09:16→20:02)
[2017-05-01] MEDS: ARIPiprazole 15 MG TAB PO SCH (09:16)
[2017-05-01 09:32] LABS: Basophils # (A) 0.1 k/uL (0-0.2); Basophils % (A) 1 %; CH 30.3; CHCM 35.9; Eosinophils # (A) 0.5 k/uL (0-0.7); Eosinophils % (A) 5 %; HCT 38.8 % (39.0-53.0); HGB 14.3 gm/dL (13.0-17.5); Luc # (Auto) 0.09; Luc % (Auto) 1; Lymphocytes # (A) 2.3 k/uL (1.0-4.8); Lymphocytes % (A) 26 %; MCH 31.2 pg (25.0-35.0); MCHC 36.8 g/dL (31.0-37.0); MCV 84.8 fL (80.0-100.0); Mean Platelet Volume 7.1; Monocytes # (A) 0.4 k/uL (0-1.0); Monocytes % (A) 4 %; Neutrophils # (A) 5.5 k/uL (1.3-7.7); Neutrophils % (A) 63 %; RBC 4.57 m/uL (4.30-5.90); RDW 12.9 % (11.5-15.5); WBC 8.8 k/uL (3.8-10.6); WBC (Perox) 8.24
[2017-05-01 10:00] LABS: ALT 51 U/L (21-72); AST 43 U/L (17-59); Alkaline Phosphatase 78 U/L (38-126); Anion Gap 12 mmol/L; Blood Urea Nitrogen 15 mg/dL (9-20); Calcium 9.6 mg/dL (8.4-10.2); Carbon Dioxide 28 mmol/L (22-30); Chloride 103 mmol/L (98-107); Glucose 142 mg/dL (74-99); Non-African American GFR(MDRD) >60 (>60 ml/min/1.73 sqM); Potassium 3.7 mmol/L (3.5-5.1); Sodium 143 mmol/L (137-145); Total Bilirubin 0.8 mg/dL (0.2-1.3); Total Protein 7.8 g/dL (6.3-8.2)
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
[2017-05-01] MEDS: hydrOXYzine PAMOATE 25 MG CAP PO PRN (17:28)
[2017-05-01] MEDS: SERTRALINE 100 MG TAB PO SCH (20:02)
[2017-05-02] MEDS: ACETAMINOPHEN TAB 325 MG TAB PO PRN ×3 (01:13→23:01)
[2017-05-02] MEDS: ARIPiprazole 15 MG TAB PO SCH (08:47)
[2017-05-02] MEDS: NICOTINE 14MG/24HR PATCH TRANSDERM SCH (08:47)
[2017-05-02] MEDS: TRIHEXYPHENIDYL 2 MG TAB PO SCH ×3 (08:47→21:36)
[2017-05-02] MEDS: FAMOTIDINE 20 MG TAB PO SCH (08:47)
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
[2017-05-02] MEDS: SERTRALINE 100 MG TAB PO SCH (21:36)
[2017-05-02] MEDS: cloZAPine 25 MG TAB PO SCH (23:00)
[2017-05-02] MEDS: hydrOXYzine PAMOATE 25 MG CAP PO PRN (23:03)
[2017-05-03] MEDS: NICOTINE 14MG/24HR PATCH TRANSDERM SCH (08:27)
[2017-05-03] MEDS: TRIHEXYPHENIDYL 2 MG TAB PO SCH ×3 (08:28→20:25)
[2017-05-03] MEDS: FAMOTIDINE 20 MG TAB PO SCH (08:29)
[2017-05-03] MEDS: ARIPiprazole 15 MG TAB PO SCH (08:29)
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
[2017-05-03] MEDS: hydrOXYzine PAMOATE 25 MG CAP PO PRN ×2 (16:59→23:26)
[2017-05-03] MEDS: ACETAMINOPHEN TAB 325 MG TAB PO PRN ×2 (17:00→22:44)
[2017-05-03] MEDS: SERTRALINE 100 MG TAB PO SCH (21:35)
[2017-05-03] MEDS: cloZAPine 25 MG TAB PO SCH (21:35)
[2017-05-04] MEDS: NICOTINE 14MG/24HR PATCH TRANSDERM SCH (09:24)
[2017-05-04] MEDS: FAMOTIDINE 20 MG TAB PO SCH (09:24)
[2017-05-04] MEDS: ARIPiprazole 15 MG TAB PO SCH (09:24)
[2017-05-04] MEDS: TRIHEXYPHENIDYL 2 MG TAB PO SCH ×3 (09:24→21:37)
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
[2017-05-04] MEDS: ACETAMINOPHEN TAB 325 MG TAB PO PRN (19:38)
[2017-05-04] MEDS: cloZAPine 25 MG TAB PO SCH (21:37)
[2017-05-04] MEDS: SERTRALINE 100 MG TAB PO SCH (21:37)
[2017-05-05] MEDS: hydrOXYzine PAMOATE 25 MG CAP PO PRN (01:08)
[2017-05-05] MEDS: FAMOTIDINE 20 MG TAB PO SCH (08:52)
[2017-05-05] MEDS: NICOTINE 14MG/24HR PATCH TRANSDERM SCH (08:52)
[2017-05-05] MEDS: ARIPiprazole 15 MG TAB PO SCH (08:52)
[2017-05-05] MEDS: TRIHEXYPHENIDYL 2 MG TAB PO SCH ×3 (08:52→21:35)
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
[2017-05-05] MEDS: cloZAPine 25 MG TAB PO SCH (21:37)
[2017-05-05] MEDS: SERTRALINE 100 MG TAB PO SCH (21:37)
[2017-05-06] MEDS: ARIPiprazole 15 MG TAB PO SCH (09:18)
[2017-05-06] MEDS: NICOTINE 14MG/24HR PATCH TRANSDERM SCH (09:18)
[2017-05-06] MEDS: TRIHEXYPHENIDYL 2 MG TAB PO SCH ×3 (09:18→21:35)
[2017-05-06] MEDS: FAMOTIDINE 20 MG TAB PO SCH (09:18)
--- NOTE | 2017-05-06 11:55 | P.PN ---
Progress Note - Text Interval history: The patient is found in group he follows me to an interview room. He reports feeling tired he indicates that the titration of Clozaril makes him feel more sedated. He is however willing to continue to cooperate with the medication as directed. Staff report that the patient did not go to sleep last night until 3 AM. He does describe napping briefly during the day. He continues to voice his concerns regarding his return to shelter and persecutory thoughts regarding the police. He has no no further questions or concerns regarding the medication. Mental status exam: The patient is an overweight male appearing his stated age. He is alert but appears tired. He participates in the conversation in that he is cooperative. He continues to describe paranoid Persky Tory thoughts. Affect is constricted to bland. He demonstrates no verbal or physical aggressiveness. He is endorsing no acute suicidal or homicidal ideation intent or plan. Insight and judgment limited. Plan: The patient will continue on his medication as written he is due for an Abilify maintena injection tomorrow I believe. We will continue to monitor him for safety encourage his participation in the milieu. We will make an effort to contact the shelter to see if he will be placed in general population versus the isolation cell. Vital signs reviewed.
[2017-05-06] MEDS: cloZAPine 25 MG TAB PO SCH (21:34)
[2017-05-06] MEDS: SERTRALINE 100 MG TAB PO SCH (21:34)
[2017-05-07] MEDS: ARIPiprazole 15 MG TAB PO SCH (08:37)
[2017-05-07] MEDS: TRIHEXYPHENIDYL 2 MG TAB PO SCH ×3 (08:37→21:20)
[2017-05-07] MEDS: NICOTINE 14MG/24HR PATCH TRANSDERM SCH (08:37)
[2017-05-07] MEDS: FAMOTIDINE 20 MG TAB PO SCH (08:38)
[2017-05-07] MEDS ORDERED: cloZAPine 25 MG TAB PO SCH (09:30)
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
[2017-05-07] MEDS ORDERED: ARIPiprazole 400 MG VIAL IM ONE (09:45)
[2017-05-07 11:56] LABS: Basophils # (A) 0.1 k/uL (0-0.2); Basophils % (A) 1 %; CH 30.3; CHCM 35.4; Eosinophils # (A) 0.5 k/uL (0-0.7); Eosinophils % (A) 5 %; HCT 39.8 % (39.0-53.0); HDW 2.76; HGB 14.2 gm/dL (13.0-17.5); Luc # (Auto) 0.17; Luc % (Auto) 2; Lymphocytes # (A) 2.8 k/uL (1.0-4.8); Lymphocytes % (A) 28 %; MCH 30.6 pg (25.0-35.0); MCHC 35.6 g/dL (31.0-37.0); MCV 85.8 fL (80.0-100.0); Mean Platelet Volume 6.6; Monocytes # (A) 0.5 k/uL (0-1.0); Monocytes % (A) 5 %; Neutrophils # (A) 5.8 k/uL (1.3-7.7); Neutrophils % (A) 58 %; RBC 4.64 m/uL (4.30-5.90); RDW 12.7 % (11.5-15.5); WBC 9.9 k/uL (3.8-10.6); WBC (Perox) 10.71
[2017-05-07] MEDS: SERTRALINE 100 MG TAB PO SCH (21:20)
[2017-05-07] MEDS: cloZAPine 25 MG TAB PO SCH (21:20)
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
[2017-05-08] MEDS: TRIHEXYPHENIDYL 2 MG TAB PO SCH ×3 (09:47→20:49)
[2017-05-08] MEDS: ARIPiprazole 5 MG TAB PO SCH (09:47)
[2017-05-08] MEDS: FAMOTIDINE 20 MG TAB PO SCH (09:47)
[2017-05-08] MEDS: NICOTINE 14MG/24HR PATCH TRANSDERM SCH (09:47)
[2017-05-08] MEDS: cloZAPine 25 MG TAB PO SCH (20:50)
[2017-05-08] MEDS: SERTRALINE 100 MG TAB PO SCH (20:50)
[2017-05-09] MEDS: NICOTINE 14MG/24HR PATCH TRANSDERM SCH (08:39)
[2017-05-09] MEDS: ARIPiprazole 5 MG TAB PO SCH (08:40)
[2017-05-09] MEDS: FAMOTIDINE 20 MG TAB PO SCH (08:40)
[2017-05-09] MEDS: TRIHEXYPHENIDYL 2 MG TAB PO SCH ×3 (08:40→20:06)
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
[2017-05-09] MEDS: SERTRALINE 100 MG TAB PO SCH (20:06)
[2017-05-09] MEDS: cloZAPine 25 MG TAB PO SCH (20:08)
[2017-05-10] MEDS: ARIPiprazole 5 MG TAB PO SCH (08:28)
[2017-05-10] MEDS: NICOTINE 14MG/24HR PATCH TRANSDERM SCH (08:29)
[2017-05-10] MEDS: TRIHEXYPHENIDYL 2 MG TAB PO SCH ×3 (08:29→21:09)
[2017-05-10] MEDS: FAMOTIDINE 20 MG TAB PO SCH (08:30)
--- NOTE | 2017-05-10 10:58 | P.PN ---
Progress Note - Text Interval history: The patient is found in group he follows me to an interview room. The patient states that he feels overmedicated and feels like a zombie with the Clozaril at its current dose. In detail we discussed the medication its purpose and potential side effects. We discussed that we are still utilizing a lower dose for the medication. He continues to have paranoid persecutory thoughts that are impacting his daily function. He feels he is having memory issues and concentration issues due to the medication. Mental status exam: The patient is a male he seated calmly eye contact is appropriate speech is fluent spontaneous. He does not appear to be having difficulties verbalizing his thoughts during our session. He does continue to have paranoid persecutory delusions. Insight and judgment are impaired. Today he endorses suicidal ideation as he just wants the nightmare to and. He endorses no acute intent or plan of acting on that. He does frequently changes position while seated in the chair no abnormal involuntary movements observed. Plan: The patient will continue on his current medication I will reduce the Clozaril to 50 mg at bedtime allowing him more time to adjust to the medication. He continues to require inpatient psychiatric hospitalization due to the severity of his psychosis. Vital signs reviewed.
[2017-05-10] MEDS: SERTRALINE 100 MG TAB PO SCH (21:09)
[2017-05-10] MEDS: cloZAPine 25 MG TAB PO SCH (23:38)
[2017-05-10] MEDS: ACETAMINOPHEN TAB 325 MG TAB PO PRN (23:58)
[2017-05-11] MEDS: MAG HYDROX/AL HYDROX/SIMETH 30 ML CUP PO PRN (00:13)
[2017-05-11] MEDS: FAMOTIDINE 20 MG TAB PO SCH (08:32)
[2017-05-11] MEDS: NICOTINE 14MG/24HR PATCH TRANSDERM SCH (08:32)
[2017-05-11] MEDS: ARIPiprazole 5 MG TAB PO SCH (08:32)
[2017-05-11] MEDS: TRIHEXYPHENIDYL 2 MG TAB PO SCH ×3 (08:32→21:02)
--- NOTE | 2017-05-11 10:25 | P.PN ---
Progress Note - Text Interval history: The patient is found in group he follows me to an interview room. He reports feeling "dopey". Again he continues to stay up most of the night and reports that he wanted to bed about 4 AM. He typically stays up at night when not in the hospital. We discussed utilizing sleeping medication so that he is able to sleep more at night which will reduce daytime fatigue. We did reduce the Clozaril for last night's dose. We will discontinue the oral dose of Abilify. He continues to have the same concerns regarding paranoid person Tonie thoughts. He states that he had some feelings of panic last evening. Mental status exam: The patient's is a male appearing his stated age he is dressed in a T-shirt and shorts. He is cooperative and directable during the session he maintains a blunted affect he appears tired. He is reporting no suicidal or homicidal ideation today. He continues to have paranoid persecutory thoughts again mainly focusing on law enforcement. He demonstrates no verbal or physical aggressiveness during our session. Insight and judgment remain impaired. Thought process was fairly linear today. He had less spontaneous speech today compared to other days. Plan: The patient's will continue on his medications as written however we will discontinue the oral dose of Abilify. Temporarily we will add Restoril 15 mg at bedtime to try to get him asleep earlier in the evening to reduce daytime fatigue. We will consider reducing the Artane in case that is contributing to fatigue. Vital signs reviewed.
[2017-05-11] MEDS: SERTRALINE 100 MG TAB PO SCH (21:01)
[2017-05-12] MEDS: cloZAPine 25 MG TAB PO SCH (00:14)
[2017-05-12] MEDS: TEMAZEPAM 15 MG CAP PO SCH ×2 (00:14→21:44)
[2017-05-12] MEDS: NICOTINE 14MG/24HR PATCH TRANSDERM SCH (09:38)
[2017-05-12] MEDS: FAMOTIDINE 20 MG TAB PO SCH (09:38)
[2017-05-12] MEDS: TRIHEXYPHENIDYL 2 MG TAB PO SCH ×3 (09:38→21:58)
--- NOTE | 2017-05-12 09:50 | P.PN ---
Progress Note - Text Interval history: The patient is found in his room sleeping he follows me to an interview room. He reports that he feels tired and groggy. He reports that he went to bed at 10:00 and slept throughout the night. Documentation however states he had difficulty falling asleep and slept 5 hours. He admits that he slept a significant portion of yesterday. We discussed medication changes that were made area the oral Abilify was discontinued Restoril was added at bedtime. He prefers at the claws role be given earlier in the evening and we will switch the timing. Mental status exam: The patient is alert he appears tired he seated calmly. Eye contact is appropriate. He provides brief answers to questions asked. He does not generate much spontaneous speech. He appeared to want to get up and leave several times during the session but he demonstrated no verbal or physical aggressiveness. I the patient continues to have the same paranoid and person Vinod thoughts. Insight and judgment limited. The patient has struggle with some suicidal ideation due to his symptoms of psychosis he reports they are less severe today. He does not appear hypomanic or manic. Plan: The patient will continue on his current medications we will change the timing of the claws role to 8 PM. If we feel that the claws role really is too sedating we will consider discontinuing it and possibly augmenting with Haldol. He requires continued hospitalization due to the severity of his psychosis. Vital signs reviewed.
--- NOTE | 2017-05-12 12:43 | P.PN ---
Progress Note - Text We have been asked to reassess patient regarding toe problem. Patient is noted to have fungus between his first and second toes for which Lamisil cream will be added. Patient will need treatment for a minimum of 4 weeks.
[2017-05-12] MEDS: TERBINAFINE 1% CREAM 15 GM TUBE TOPICAL SCH ×2 (13:02→21:51)
[2017-05-12] MEDS: SERTRALINE 100 MG TAB PO SCH ×2 (21:44→21:51)
[2017-05-13] MEDS: TEMAZEPAM 15 MG CAP PO SCH (00:39)
[2017-05-13] MEDS ORDERED: cloZAPine 25 MG TAB PO SCH (09:00)
[2017-05-13] MEDS: NICOTINE 14MG/24HR PATCH TRANSDERM SCH (09:57)
[2017-05-13] MEDS: FAMOTIDINE 20 MG TAB PO SCH (09:57)
[2017-05-13] MEDS: TRIHEXYPHENIDYL 2 MG TAB PO SCH ×3 (09:57→21:56)
[2017-05-13] MEDS: TERBINAFINE 1% CREAM 15 GM TUBE TOPICAL SCH ×2 (09:58→21:58)
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
[2017-05-13] MEDS: hydrOXYzine PAMOATE 25 MG CAP PO PRN ×2 (13:34→23:13)
[2017-05-13] MEDS: MAG HYDROX/AL HYDROX/SIMETH 30 ML CUP PO PRN (20:54)
[2017-05-13] MEDS: SERTRALINE 100 MG TAB PO SCH (21:56)
[2017-05-14] MEDS: TEMAZEPAM 15 MG CAP PO PRN (02:27)
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
[2017-05-14] MEDS: TRIHEXYPHENIDYL 2 MG TAB PO SCH ×3 (08:55→21:38)
[2017-05-14] MEDS: NICOTINE 14MG/24HR PATCH TRANSDERM SCH (08:55)
[2017-05-14] MEDS: FAMOTIDINE 20 MG TAB PO SCH (08:56)
[2017-05-14] MEDS: TERBINAFINE 1% CREAM 15 GM TUBE TOPICAL SCH ×2 (08:56→21:41)
[2017-05-14 09:48] VITALS: BMI 32.7
[2017-05-14] MEDS: SERTRALINE 100 MG TAB PO SCH (21:38)
[2017-05-14] MEDS: HALOPERIDOL 2 MG TAB PO SCH (21:38)
[2017-05-15] MEDS: TEMAZEPAM 15 MG CAP PO PRN (01:00)
[2017-05-15] MEDS: FAMOTIDINE 20 MG TAB PO SCH (08:39)
[2017-05-15] MEDS: TRIHEXYPHENIDYL 2 MG TAB PO SCH ×3 (08:39→23:59)
[2017-05-15] MEDS: NICOTINE 14MG/24HR PATCH TRANSDERM SCH (08:39)
[2017-05-15] MEDS: TERBINAFINE 1% CREAM 15 GM TUBE TOPICAL SCH (08:41)
--- NOTE | 2017-05-15 09:22 | P.PN ---
Progress Note - Text Interval history: The patient is found in group he follows me to an interview room. He is pleased that the claws role has been discontinued he feels less sedated and less cloudy Haldol 2 mg at bedtime has been started. He is reporting no side effects from that medication. He continues to participate in groups. He did participate in a court session via video and he was informed he will require a forensic evaluation. He offers no objection to this. Sleep is documented as having been 2 hours last evening he indicates he slept better than that. Appetite remains stable. He continues to be quite concerned regarding his treatment in the senior care and he presumes he will be traumatized there again. Mental status exam: The patient is alert he is dressed in his own clothing he seated calmly in his chair. Eye contact is appropriate speech is fluent spontaneous nonpressured. He demonstrates no psychomotor agitation or slowing today. He feels safe in the hospital he continues to feel unsafe with the idea of returning to the senior care. He is reporting no current suicidal or homicidal ideation. Thought process for the most part is linear. He remains oriented. He demonstrates no verbal or physical aggressiveness. Insight and judgment limited. No abnormal involuntary movements observed. Affect is constricted throughout the session. Plan: We have recently discontinue the Clozaril we will continue the Haldol as an augmentation strategy. We will consider titrating the Haldol further. It does appear that there is some mild improvement although his symptoms of psychosis persist. We will consider titrating the Haldol to 5 mg at bedtime. We will consider a discharge early next week. Vital signs reviewed. We will continue monitoring him for safety and encourage and his participation in the milieu.
[2017-05-15] MEDS: HALOPERIDOL 2 MG TAB PO SCH (23:59)
[2017-05-16] MEDS: ACETAMINOPHEN TAB 325 MG TAB PO PRN ×2 (01:35→20:17)
[2017-05-16] MEDS: hydrOXYzine PAMOATE 25 MG CAP PO PRN ×2 (01:39→15:06)
[2017-05-16] MEDS ORDERED: WATER FOR INJECTION, STERILE 10 ML IV ONE (01:49)
[2017-05-16] MEDS ORDERED: ZIPRASIDONE 20 MG VIAL IM ONE (01:49)
[2017-05-16] MEDS: ZIPRASIDONE 20 MG VIAL IM PRN ×2 (01:50→15:05)
[2017-05-16] MEDS: NICOTINE 14MG/24HR PATCH TRANSDERM SCH (08:56)
[2017-05-16] MEDS: FAMOTIDINE 20 MG TAB PO SCH (08:56)
[2017-05-16] MEDS: TERBINAFINE 1% CREAM 15 GM TUBE TOPICAL SCH ×3 (08:57→20:19)
[2017-05-16] MEDS: TRIHEXYPHENIDYL 2 MG TAB PO SCH ×3 (08:57→21:40)
--- NOTE | 2017-05-16 10:29 | P.PN ---
Progress Note - Text Interval history: The patient is found in group he follows me to an interview room. He reports he had a more difficult evening last night. He states he was seated next to a female peer and all of a sudden had thoughts of being gassed. He states he asked for a when necessary injectable medication. After receiving that he felt his concerns were alleviated. Nursing reports that the patient was spending time with a young female peer and they had directed him to another portion of the hallway. They feel he became agitated at that point and required the injection. He states he has been able to tolerate the Haldol without any report of side effect. Again we discussed titrating the dose to 5 mg at bedtime and he is agreeable. Mental status exam: The patient is alert he seated calmly eye contact is appropriate speech is fluent spontaneous nonpressured. He reported thoughts of being poisoned with gas last evening. He states receiving the injection help resolve those thoughts. We highlighted the fact that he had those thoughts they resolved and now we know they are not true. At that point the patient change the topic and began discussing his concerns that others think he is a "Judaism". He is reporting no suicidal or homicidal thoughts. He had a mild increase in psychomotor activity during our discussion demonstrated no verbal or physical aggressiveness. Insight and judgment limited. Affect constricted to blunted. When asked he will continue to endorse paranoid and persecutory feelings towards [facility] officers and the police. Plan: The patient's will continue on his current medications however we will titrate the Haldol to 5 mg at bedtime. We will continue to monitor him for safety. Vital signs reviewed. We will consider a discharge plan of early next week if he is clinically stable.
[2017-05-16] MEDS ORDERED: HALOPERIDOL LACTATE 5 MG/ML 1 ML VIAL IM PRN (15:16)
[2017-05-16] MEDS ORDERED: LORazepam 2 MG/ML SYRINGE IM PRN (15:18)
[2017-05-16] MEDS: SERTRALINE 100 MG TAB PO SCH ×2 (20:16)
[2017-05-16] MEDS: HALOPERIDOL 5 MG TAB PO SCH (20:16)
[2017-05-17] MEDS: TEMAZEPAM 15 MG CAP PO PRN ×2 (01:53→21:46)
[2017-05-17] MEDS: TERBINAFINE 1% CREAM 15 GM TUBE TOPICAL SCH ×2 (08:33→19:37)
[2017-05-17] MEDS: NICOTINE 14MG/24HR PATCH TRANSDERM SCH (08:34)
[2017-05-17] MEDS: FAMOTIDINE 20 MG TAB PO SCH (08:35)
[2017-05-17] MEDS: TRIHEXYPHENIDYL 2 MG TAB PO SCH ×3 (08:35→21:45)
[2017-05-17] MEDS: hydrOXYzine PAMOATE 25 MG CAP PO PRN ×2 (08:35→14:12)
[2017-05-17] MEDS: ACETAMINOPHEN TAB 325 MG TAB PO PRN ×2 (16:26→23:47)
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
[2017-05-17] MEDS: OLANZapine ODT 5 MG TAB PO PRN (18:37)
[2017-05-17] MEDS: OLANZapine 10 MG TAB PO SCH (19:36)
[2017-05-17] MEDS: SERTRALINE 100 MG TAB PO SCH (19:36)
[2017-05-17] MEDS: HALOPERIDOL 5 MG TAB PO SCH (19:36)
[2017-05-18] MEDS: TERBINAFINE 1% CREAM 15 GM TUBE TOPICAL SCH ×2 (08:58→21:58)
[2017-05-18] MEDS: NICOTINE 14MG/24HR PATCH TRANSDERM SCH (08:58)
[2017-05-18] MEDS: TRIHEXYPHENIDYL 2 MG TAB PO SCH ×3 (08:58→21:55)
[2017-05-18] MEDS: hydrOXYzine PAMOATE 25 MG CAP PO PRN ×3 (08:59→23:30)
[2017-05-18] MEDS: FAMOTIDINE 20 MG TAB PO SCH (08:59)
[2017-05-18] MEDS: ACETAMINOPHEN TAB 325 MG TAB PO PRN ×2 (16:39→22:10)
[2017-05-18] MEDS: SERTRALINE 100 MG TAB PO SCH (21:55)
[2017-05-18] MEDS: OLANZapine 10 MG TAB PO SCH (21:56)
[2017-05-18] MEDS: HALOPERIDOL 5 MG TAB PO SCH (21:56)
[2017-05-18] MEDS: TEMAZEPAM 15 MG CAP PO PRN (23:33)
[2017-05-19 00:13] VITALS: BP 149/71; PULSE 120; RESP 18; TEMP 98.7
[2017-05-19] MEDS: TRIHEXYPHENIDYL 2 MG TAB PO SCH ×2 (08:35→16:11)
[2017-05-19] MEDS: FAMOTIDINE 20 MG TAB PO SCH (08:36)
[2017-05-19] MEDS: NICOTINE 14MG/24HR PATCH TRANSDERM SCH (08:36)
[2017-05-19] MEDS: TERBINAFINE 1% CREAM 15 GM TUBE TOPICAL SCH (08:37)
--- NOTE | 2017-05-19 11:14 | P.DS ---
Providers Date of admission: 04/30/17 16:56 Expected date of discharge: 05/19/17 Attending physician: Mathew Martin Consults: 04/30/17 17:30 Consult Physician Routine Consulting Provider: Stephanie Schulz Consult Reason/Comments: h and p, eval and tx, r/o metabolic disorder Do you want consulting provider notified?: Yes Primary care physician: Stated None - Discharge Diagnosis(es) (1) Schizoaffective disorder Current Visit: Yes Status: Acute Priority: High (2) Cannabis use disorder, mild, abuse Current Visit: Yes Status: Acute Priority: Medium Hospital Course: Brief summary admission note: This patient is a 41-year-old male who was admitted back to the mental health unit for acute symptoms of psychosis. Prior to this admission the patient had just been discharged from the mental health unit for acute symptoms of psychosis. He will be presented with a petition indicating the patient thought he was being poisoned he felt he was being traumatized by officers at the senior care. He was refusing to eat or drink and had made comments that he would harm himself. He also made threatening statements towards officers. For full details please refer to my psychiatric evaluation dated 05/01/2017. Summary of hospital course: The patient was admitted to the mental health unit voluntarily. We reviewed the patient's presenting symptoms and medication options. He had previously been given Abilify maintena we decided to continue this and his last injection was given 05/07/2017. During the hospitalization we decided to use Clozaril as an augmentation strategy this initially was started at 25 mg at bedtime and eventually titrated to 75 mg at bedtime. The patient felt overmedicated groggy and did not wish to continue with Clozaril as an augmentation strategy. Prior to using the Clozaril I did contact his outpatient prescriber Mulu Golden to discuss care. After we discontinued the Clozaril Haldol was initiated 2 mg at bedtime and this was titrated 5 mg at bedtime. The patient reported a resolution of his suicidal thoughts he reports no intent or plan of harming others. He does have residual symptoms of psychosis but he has not been demonstrating any aggressive behavior. The patient has selectively been attending groups. He has struggled with sleep at night but has been sleeping during the day. During the course of his stay he was notified that he will need to undergo a forensic psychiatric evaluation which is not yet scheduled. Mental status exam: The patient is an overweight male appearing his stated age he is dressed in his own clothing. He seated calmly in the chair eye contact is appropriate. He reports his mood is "stable" affect is constricted. He states he has no suicidal ideation intent or plan he is endorsing no intent or plan of harming others. He does continue to have residual feelings of paranoia but does not spontaneously speak of them today. He is endorsing no auditory or visual hallucinations today. He demonstrates no abnormal involuntary movements. He demonstrates no verbal or physical aggressiveness. We discussed a plan of discharging him today and he tolerated that news without any agitation. The patient is aware that he will be returning to the senior care. He was able to receive recommendations such as controlling his behavior to facilitate a transfer to the general population which he wants. Impressions 1. Schizoaffective disorder depressed type, cannabis use disorder 2. Hypothyroidism 3. Pending legal charges, awaiting forensic psychiatric evaluation Plan: The patient will be discharged from the mental health unit to return back to the senior care. He was given the Abilify intent on 05/07/2017 and will be due for the next dose on 06/07/2017 of 400 mg IM. We will continue Haldol 5 mg at bedtime this may be titrated further with further psychiatric follow-up. He will continue on Zoloft 200 mg at bedtime and Artane 5 mg 3 times daily. The patient is not seen to be at imminent risk he has controlled his behavior for numerous days here in the mental health unit and is appropriate for transition back to the senior care. I would recommend continued [facility] services at the senior care. Patient Condition at Discharge: Stable Plan - Discharge Summary New Discharge Prescriptions: New Haloperidol [Haldol] 5 mg PO HS #30 tab Nicotine 14Mg/24Hr Patch [Habitrol] 1 patch TRANSDERM DAILY #12 patch Trihexyphenidyl HCl 5 mg PO TID #90 tablet Continue ARIPiprazole IM [Abilify Maintena] 400 mg IM Q28D #1 Sertraline [Zoloft] 200 mg PO HS #60 Discontinued ARIPiprazole [Abilify] 15 mg PO QAM QUEtiapine [SEROquel] 200 mg PO HS #30 Trihexyphenidyl HCl 5 mg PO BID #60 Discharge Medication List ARIPiprazole IM [Abilify Maintena] 400 mg IM Q28D #1 05/19/17 [Rx] Haloperidol [Haldol] 5 mg PO HS #30 tab 05/19/17 [Rx] Nicotine 14Mg/24Hr Patch [Habitrol] 1 patch TRANSDERM DAILY #12 patch 05/19/17 [ Rx] Sertraline [Zoloft] 200 mg PO HS #60 05/19/17 [Rx] Trihexyphenidyl HCl 5 mg PO TID #90 tablet 05/19/17 [Rx] Follow up Appointment(s)/Referral(s): None,Stated [Primary Care Provider] - 1-2 days
[2017-05-19] MEDS: OLANZapine ODT 5 MG TAB PO PRN (16:39)
== END 2017-05-19 17:19 | DRG 885 ==
LOC: EC 14:34 → 3MHU 16:56
PROVIDERS: ADMIT Psychiatry & Neurology Psychiatry; ATTEND Psychiatry & Neurology Psychiatry
DX: F25.1 Schizoaffective disorder, depressive type (principal); R45.851 Suicidal ideations; I10 Essential (primary) hypertension; E03.9 Hypothyroidism, unspecified; B34.9 Viral infection, unspecified; E66.3 Overweight; E78.5 Hyperlipidemia, unspecified; F12.10 Cannabis abuse, uncomplicated; F41.0 Panic disorder [episodic paroxysmal anxiety]; F43.10 Post-traumatic stress disorder, unspecified; Z79.899 Other long term (current) drug therapy; Z81.8 Family history of other mental and behavioral disorders; Z87.891 Personal history of nicotine dependence
CPT/HCPCS: 71020; 80053; 80306; 81001; 82075; 84443; 85025; 99285